=== PATIENT | female | born 1960 | race African-American/Black ===

== ENCOUNTER 2019-04-27 08:51 | Emergency (ER) | payer MEDICARE ==
[~2019-04-27] VITALS: Ht 154.9 cm; Wt 54.4 kg
[2019-04-27] MEDS ORDERED: ZETIA10 MG ORAL (09:00)
[2019-04-27] MEDS ORDERED: ASPIR 8181 MG ORAL (09:00)
[2019-04-27] MEDS ORDERED: Isovue-300 100ml vial INJ PRN (09:15)
[2019-04-27] MEDS ORDERED: Morphine Sulfate 2mg/ml Inj(IV/IM USE ONLY) IVP ONE (09:15)
--- NOTE | 2019-04-27 09:27 | NUR ---
ED Nurse Note:pt. came from home with right lower abdominal pain, A/Ox4 ambulatory, blood sent to labs and pain meds givne IV, continue monitor
[2019-04-27 09:28] VITALS: BP 146/65
[2019-04-27 09:39] LABS: ANION GAP 6 mmol/L (5-15); BLOOD UREA NITROGEN 11 mg/dL (7-18); CALCIUM 9.3 MG/DL (8.5-10.1); CARBON DIOXIDE 28 MMOL/L (21-32); CHLORIDE 106 MMOL/L (98-107); CREATININE 0.8 MG/DL (0.55-1.30); SODIUM 140 MMOL/L (136-145)
[2019-04-27 09:40] LABS: HEMATOCRIT 35.7 % (37.0-47.0); HEMOGLOBIN 11.6 G/DL (12.0-16.0); MEAN CORPUSCULAR VOLUME 95 FL (80-99); PLATELET COUNT 206 K/UL (150-450); RED BLOOD COUNT 3.77 M/UL (4.20-5.40); RED CELL DISTRIBUTION WIDTH 12.3 % (11.6-14.8); WHITE BLOOD COUNT 4.1 K/UL (4.8-10.8)
[2019-04-27 09:43] LABS: ALANINE AMINOTRANSFERASE 21 U/L (12-78); ALBUMIN 3.7 G/DL (3.4-5.0); ALBUMIN/GLOBULIN RATIO 0.9 (1.0-2.7); ALKALINE PHOSPHATASE 85 U/L (46-116); ASPARTATE AMINO TRANSFERASE 26 U/L (15-37); BILIRUBIN,TOTAL 0.3 MG/DL (0.2-1.0)
[2019-04-27 09:52] LABS: APPEARANCE,URINE CLEAR; BILIRUBIN, URINE NEGATIVE (NEGATIVE); COLOR,URINE PALE YELLOW; GLUCOSE, URINE (UA) NEGATIVE (NEGATIVE); KETONES,URINE NEGATIVE (NEGATIVE); LEUKOCYTE ESTERASE ,URINE NEGATIVE (NEGATIVE); NITRITE,URINE NEGATIVE (NEGATIVE); PH,URINE 5 (4.5-8.0); PROTEIN,URINE NEGATIVE (NEGATIVE); UROBILINOGEN,URINE NORMAL MG/DL (0.0-1.0)
--- NOTE | 2019-04-27 09:55 | NUR ---
ED Nurse Note:CT abdomrn was done
[2019-04-27] MEDS ORDERED: NORCO 5-325 TA1 EACH ORAL (11:07)
[2019-04-27] MEDS ORDERED: COLACE100 MG ORAL (11:07)
[2019-04-27 11:25] VITALS: BP 141/66
[2019-04-27 11:26] VITALS: BP 141/66
--- NOTE | 2019-04-27 11:27 | NUR ---
ER DISCHARGE NOTE: Patient is cleared to be discharged per ERMD, pt is aox4, on room air, with stable vital signs. pt was given dc and prescription instructions, pt was able to verbalize understanding, pt id band and iv site removed without complications. pt is able to ambulate with steady gait. pt took all belongings.
--- NOTE | 2019-04-27 13:42 | Emergency Room Report ---
History of Present Illness General Chief Complaint: Abdominal Pain Source: Patient Present Illness HPI Patient presents emergency department today complaining of abdominal pain. Patient states that she has right lower quadrant abdominal pain for the last couple of days. There is some associated nausea. Patient has history of a hernia repair in the right inguinal area. She was concerned that there was an issue with her hernia repair. She denies any fever chest pain shortness of breath. The pain does radiate a little bit to her back as well. She denies any dysuria urinary frequency. Denies any vaginal discharge. Symptoms noted to be moderate to severe. No other modifying factors. No other associated signs and symptoms. No other complaints were noted. 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, 2 open heart surgery Hx Gastrointestinal Problems: No - hernia Review of Systems All Other Systems: negative except mentioned in HPI Physical Exam Vital Signs Date Time Temp Pulse Resp B/P (MAP) Pulse Ox O2 Delivery O2 Flow Rate FiO2 04/27/19 08:57 97.9 60 16 146/65 (92) 100 Room Air Sp02 EP Interpretation: reviewed, normal General Appearance: normal inspection, well appearing, no apparent distress, alert Head: atraumatic Eyes: bilateral eye normal inspection ENT: normal ENT inspection, hearing grossly normal, normal voice Neck: normal inspection, full range of motion, supple, no bony tend Respiratory: normal inspection, lungs clear, normal breath sounds, no respiratory distress, no retraction, no wheezing Cardiovascular #1: regular rate, rhythm, no edema Gastrointestinal: normal inspection, normal bowel sounds, soft, no guarding, no hernia, tenderness - Right lower quadrant Genitourinary: no CVA tenderness Musculoskeletal: normal inspection, back normal, normal range of motion Neurologic: normal inspection, alert, responsive, speech normal Psychiatric: normal inspection, judgement/insight normal, mood/affect normal Skin: normal inspection, normal color, no rash Medical Decision Making Diagnostic Impression: Primary Impression: Abdominal pain Additional Impressions: Elevated lipase Uterine fibroid ER Course Patient presents to the emergency department today complaining of abdominal pain. Differential considerations include acute pancreatitis, cholecystitis, gastritis, hepatitis, appendicitis just to name a few. Given the severity of the patient's presentation I felt this is a highly complex patient. This patient required extensive workup. Patient's laboratory work-up was not impressive except for slight elevation of lipase. Patient's abdominal exam however is fairly benign in the epigastrium. Because of patient's right lower quadrant abdominal pain CT scan was performed. CT scan shows evidence of right pelvic mass. Given that this is likely patient's cause for pain I felt the patient was stable for discharge. There was no evidence of any appendicitis. Patient was given prescription for pain medications. Recommend outpatient follow-up with GI as well as [facility]. Advised to return to emergency room if symptoms are not improved in 2 days. Labs Test 04/27/19 09:20 04/27/19 09:36 White Blood Count 4.1 K/UL (4.8-10.8) Red Blood Count 3.77 M/UL (4.20-5.40) Hemoglobin 11.6 G/DL (12.0-16.0) Hematocrit 35.7 % (37.0-47.0) Mean Corpuscular Volume 95 FL (80-99) Mean Corpuscular Hemoglobin 30.8 PG (27.0-31.0) Mean Corpuscular Hemoglobin Concent 32.5 G/DL (32.0-36.0) Red Cell Distribution Width 12.3 % (11.6-14.8) Platelet Count 206 K/UL (150-450) Mean Platelet Volume 6.3 FL (6.5-10.1) Neutrophils (%) (Auto) % (45.0-75.0) Lymphocytes (%) (Auto) % (20.0-45.0) Monocytes (%) (Auto) % (1.0-10.0) Eosinophils (%) (Auto) % (0.0-3.0) Basophils (%) (Auto) % (0.0-2.0) Differential Total Cells Counted 100 Neutrophils % (Manual) 36 % (45-75) Lymphocytes % (Manual) 59 % (20-45) Monocytes % (Manual) 4 % (1-10) Eosinophils % (Manual) 0 % (0-3) Basophils % (Manual) 1 % (0-2) Band Neutrophils 0 % (0-8) Platelet Estimate Adequate Platelet Morphology Normal Red Blood Cell Morphology Normal Prothrombin Time 10.8 SEC (9.30-11.50) Prothromb Time International Ratio 1.0 (0.9-1.1) Activated Partial Thromboplast Time 25 SEC (23-33) Sodium Level 140 MMOL/L (136-145) Potassium Level 4.0 MMOL/L (3.5-5.1) Chloride Level 106 MMOL/L (98-107) Carbon Dioxide Level 28 MMOL/L (21-32) Anion Gap 6 mmol/L (5-15) Blood Urea Nitrogen 11 mg/dL (7-18) Creatinine 0.8 MG/DL (0.55-1.30) Estimat Glomerular Filtration Rate > 60 mL/min (>60) Glucose Level 91 MG/DL (74-106) Calcium Level 9.3 MG/DL (8.5-10.1) Total Bilirubin 0.3 MG/DL (0.2-1.0) Aspartate Amino Transf (AST/SGOT) 26 U/L (15-37) Alanine Aminotransferase (ALT/SGPT) 21 U/L (12-78) Alkaline Phosphatase 85 U/L (46-116) Total Protein 7.9 G/DL (6.4-8.2) Albumin 3.7 G/DL (3.4-5.0) Globulin 4.2 g/dL Albumin/Globulin Ratio 0.9 (1.0-2.7) Lipase 563 U/L (73-393) Urine Color Pale yellow Urine Appearance Clear Urine pH 5 (4.5-8.0) Urine Specific [place] 1.020 (1.005-1.035) Urine Protein Negative (NEGATIVE) Urine Glucose (UA) Negative (NEGATIVE) Urine Ketones Negative (NEGATIVE) Urine Blood Negative (NEGATIVE) Urine Nitrite Negative (NEGATIVE) Urine Bilirubin Negative (NEGATIVE) Urine Urobilinogen Normal MG/DL (0.0-1.0) Urine Leukocyte Esterase Negative (NEGATIVE) CT/MRI/US Diagnostic Results CT/MRI/US Diagnostic Results : Imaging Test Ordered: CT abdomen pelvis: Right pelvic mass consistent with fibroid uterine Last Vital Signs Date Time Temp Pulse Resp B/P (MAP) Pulse Ox O2 Delivery O2 Flow Rate FiO2 04/27/19 11:26 97.9 62 17 141/66 100 Room Air Status: improved Disposition: HOME, SELF-CARE Condition: Stable Scripts Docusate Sodium* (COLACE*) 100 Mg Capsule 100 MG ORAL TWICE A DAY for 14 Days, CAP Prov: Addison Darby MD 04/27/19 Hydrocodone Bit/Acetaminophen 5-325* (NORCO 5-325*) 1 Each Tablet 1 TAB ORAL Q6H PRN for For Pain, #10 TAB 0 Refills Prov: Addison Darby MD 04/27/19 Patient Instructions: Uterine Fibroids, [id number], Abdominal Pain, Adult Addison Darby MD Apr 27, 2019 13:42
--- NOTE | 2019-04-27 17:46 | Diagnostic Imaging Report ---
Clinical Indication: Abdominal pain Technique: No oral contrast utilized, per emergency room physician request IV administration nonionic contrast. Venous phase spiral acquisition obtained through the abdomen and pelvis. Multiplanar reconstructions were generated. Total dose length product 584.1 mGycm. CTDIvol(s) 13.21 mGy. Dose reduction achieved using automated exposure control Comparison: none Findings: Lack of enteric contrast limits assessment of the GI tract. The appendix is normal. Moderate stool is seen in the ascending colon. No definite evidence of diverticulosis or diverticulitis. No small bowel distention. No free or loculated intraperitoneal gas or fluid. Distal esophagus, stomach, duodenum are unremarkable. The liver demonstrates focal fatty infiltration in the usual location adjacent to the falciform ligament. There is a subcentimeter low-attenuation lesion in segment 4A which is too small to characterize. There is slight edema of the periportal fat The gallbladder is unremarkable. No biliary ductal dilatation. The pancreas, spleen, adrenals, left kidney are unremarkable. The right kidney demonstrates an upper pole cyst. There is an intensely enhancing 2.2 cm mass in the right side of the pelvis, most likely an exophytic uterine fibroid. No other pelvic mass or adenopathy. No retroperitoneal or mesenteric mass or adenopathy. The included lung bases are clear. The bones demonstrate degenerative spondylosis changes at the lumbosacral junction Impression: Limited assessment of the GI tract, due to lack of enteric contrast administration No definite acute process Slight periportal edema. This is a nonspecific finding, can be seen in congestive heart failure or acute hepatitis Intensely enhancing 2.2 cm mass in the right-sided pelvis, most likely an exophytic uterine fibroid. Sonography recommended to confirm Subcentimeter left lobe liver lesion, too small to characterize, most likely benign simple cyst or bile hamartoma. No further follow-up necessary Other findings as noted, including focal fatty infiltration of the left lobe of the liver, degenerative spondylosis The CT scanner at [facility] is accredited by the [employer] and the scans are performed using protocols designed to limit radiation exposure to as low as reasonably achievable to attain images of sufficient resolution adequate for diagnostic evaluation.
== END 2019-04-27 11:28 | disposition home or self-care (01) ==
LOC: EMR 09:35
DX: R10.31 Right lower quadrant pain (principal); R74.8 Abnormal levels of other serum enzymes; D25.9 Leiomyoma of uterus, unspecified; K76.9 Liver disease, unspecified
CPT/HCPCS: 36415; 74177; 80053; 81003; 83690; 85007; 85025; 85610; 85730; 96374; 96375; 99284; J2270; J2405; Q9967